=== PATIENT | male | born 1995 | race Caucasian/White ===

== ENCOUNTER 2016-08-09 19:39 | Emergency (ER) | payer MEDICAID ==
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
[2016-08-09 21:26] VITALS: BMI 26.4
== END 2016-08-09 22:35 | disposition home or self-care (01) ==
LOC: ED 19:39
DX: F13.20 Sedative, hypnotic or anxiolytic dependence, uncomplicated (principal)

== ENCOUNTER 2016-08-19 23:25 | Emergency (ER) | payer MEDICAID ==
[2016-08-19 23:25] VITALS: BMI 26.4
[2016-08-20 00:13] VITALS: BP 144/83; PULSE 96; RESP 19; TEMP 97.5; O2SAT 99
--- NOTE | 2016-08-20 02:46 | ED PDOC ---
Arrival/HPI - General Chief Complaint: Anxiety Time Seen by Provider: 08/20/16 01:29 Historian: Patient - History of Present Illness Narrative History of Present Illness (Text): 08/20/16 04:13 20-year-old male with a history of panic disorder presents today complaining that he had a panic attack about 45 minutes prior to arrival. Patient states he is still feeling very anxious and stressed. Patient states he ran out of his Xanax and doesn't have an appointment with the psychiatrist until the of this month. Patient states this was one of the worst panic attacks that he had ever in his life. He denies chest pain at present time. Patient states he was having pain in the chest he was feeling short of breath. Patient states he has a long psychiatric history and has been taking Xanax 2 mg. Past Medical History - Provider Review Nursing Documentation Reviewed: Yes - Travel History Have you recently traveled outside [place] w/in the past 3 mons?: Yes If Yes, travel location?: [place] - Infectious Disease Hx of Infectious Diseases: None - Tetanus Immunization Tetanus Immunization: Unknown - Past Medical History Past Medical History: No Previous - Cardiac Hx Cardiac Disorders: No - Pulmonary Hx Respiratory Disorders: Yes Hx Asthma: Yes Hx Sleep Apnea: Yes (wears cpap) Other/Comment: anxiety, OCD - Neurological Hx Neurological Disorder: No Other/Comment: epilepsy - HEENT Hx HEENT Disorder: No - Renal Hx Renal Disorder: No - Endocrine/Metabolic Hx Endocrine Disorders: No - Hematological/Oncological Hx Blood Disorders: No - Integumentary Hx Dermatological Disorder: No - Musculoskeletal/Rheumatological Hx Musculoskeletal Disorders: No - Gastrointestinal Hx Gastrointestinal Disorders: No - Genitourinary/Gynecological Hx Genitourinary Disorders: No - Psychiatric Hx Psychophysiologic Disorder: Yes Hx Anxiety: Yes Hx Depression: Yes Hx Substance Use: No - Past Surgical History Past Surgical History: No Previous - Surgical History Hx Tonsillectomy: Yes - Anesthesia Hx Anesthesia: Yes Hx Anesthesia Reactions: No Hx Malignant Hyperthermia: No - Suicidal Assessment Feels Threatened In Home Enviroment: No Family/Social History - Physician Review Nursing Documentation Reviewed: Yes Family/Social History: Unknown Family HX Smoking Status: Never Smoked Hx Alcohol Use: No Hx Substance Use: No Hx Substance Use Treatment: No Allergies/Home Meds Allergies/Adverse Reactions: Allergies No Known Allergies Allergy (Verified 07/08/16 02:15) Home Medications: Home Meds Medication Instructions Recorded Confirmed ALPRAZolam [Xanax] 4 mg PO BID 07/08/16 07/08/16 Review of Systems - Review of Systems Constitutional: absent: Fatigue, Fevers Respiratory: absent: SOB, Cough Cardiovascular: absent: Chest Pain, Palpitations Gastrointestinal: absent: Abdominal Pain, Constipation, Diarrhea, Nausea, Vomiting Genitourinary Male: absent: Dysuria, Frequency, Hematuria Musculoskeletal: absent: Arthralgias, Back Pain, Neck Pain Skin: absent: Rash, Pruritis Neurological: absent: Headache, Dizziness Psychiatric: Anxiety. absent: Depression, Suicidal Ideation Physical Exam Vital Signs Reviewed: Yes Vital Signs Temp Pulse Resp BP Pulse Ox 08/20/16 00:12 97.5 F L 96 H 19 144/83 99 Temperature: Afebrile Blood Pressure: Normal Pulse: Regular Respiratory Rate: Normal Appearance: Positive for: Well-Appearing, Non-Toxic, Comfortable Pain Distress: None Mental Status: Positive for: Alert and Oriented X 3 - Systems Exam Head: Present: Atraumatic Mouth: Present: Moist Mucous Membranes Neck: Present: Normal Range of Motion Respiratory/Chest: Present: Clear to Auscultation, Good Air Exchange. No: Respiratory Distress, Accessory Muscle Use Cardiovascular: Present: Regular Rate and Rhythm, Normal S1, S2. No: Murmurs Upper Extremity: Present: Normal ROM Lower Extremity: Present: Normal ROM Neurological: Present: GCS=15, Speech Normal Skin: Present: Warm, Dry, Normal Color. No: Rashes Psychiatric: Present: Alert, Oriented x 3, Anxious Medical Decision Making ED Course and Treatment: 08/20/16 20-year-old male with a history of of anxiety and panic disorder ran out of his Xanax complaining of a recent panic attack. Patient is refusing to see the psychiatric ux developer. He is refusing EKG blood work and further evaluation. Patient wants a prescription for refill of his Xanax. I had a long conversation with the patient going back and forth with the patient stressing the importance of following up with a psychiatrist. Patient states he needs his Xanax without his Xanax he is going to go into withdrawal. Patient was advised that he was not going to get a prescription for Xanax from the emergency room. He then wished to speak with a male doctor in an attempt to get prescriptions for Xanax from the male doctor. The patient was then advised neither the male doctor nor myself was going to give the patient a prescription for Xanax. He could see the psychiatric ux developer and try to expedite a follow-up appointment for him but he refused the blood work again. Patient finally agreed to taking a Xanax here and then wanted to leave the emergency room. He was advised to follow-up with the psychiatrist within the next 2 days. Patient states he has an appointment with his psychiatrist. He was advised to follow-up with a primary care physician to try and get a refill of his medications. Patient verbalizes understanding of discharge instructions and need for immediate followup. I had a long in-depth conversation with the patient about Xanax and its addictive properties. Patient states he has been taking them since he was young. I have reviewed the [place] prescription website. Patient is without suicidal or homicidal ideations The patient is comfortable in the emergency room with stable vital signs. Threatening that without Xanax he will go into withdrawal. all aspects of this case were discussed the attending of record. Impression: Anxiety, panic disorder Follow-up with a primary care physician within the next 2 days Follow-up the psychiatrist within the next 2 days Return if symptoms worsen or persist or if new concerning symptoms develop - Medication Orders Current Medication Orders: Discontinued Medications Alprazolam (Xanax) 2 mg PO STAT STA PRN Reason: Protocol Stop: 08/20/16 02:43 Last Admin: 08/20/16 02:53 Dose: 2 MG Behavioural Document 08/20/16 02:53 RD (Rec: 08/20/16 02:53 RD [id number]) Maintenance Maintenance Dose Yes Disposition/Present on Arrival - Present on Arrival Any Indicators Present on Arrival: No History of DVT/PE: No History of Uncontrolled Diabetes: No Urinary Catheter: No History of Decub. Ulcer: No History Surgical Site Infection Following: None - Disposition Have Diagnosis and Disposition been Completed?: Yes Diagnosis: Panic attack, Anxiety Disposition: HOME/ ROUTINE Disposition Time: Patient Plan: Discharge Condition: GOOD Additional Instructions: Follow up with your primary care physician follow up with the psychiatrist as soon as possible Return if symptoms worsen persist or if new concerning symptoms develop Referrals: Jenny Drake MD [Primary Care Provider] - Follow up with primary [facility] [Outside] - Follow up with primary
== END 2016-08-20 02:54 | disposition home or self-care (01) ==
LOC: ED 23:25
DX: F41.0 Panic disorder [episodic paroxysmal anxiety] (principal); F41.9 Anxiety disorder, unspecified

== ENCOUNTER 2016-08-22 23:48 | Emergency (ER) | payer MEDICAID ==
[2016-08-23 00:19] VITALS: BMI 25.7
[2016-08-23 00:23] VITALS: RESP 18; TEMP 98.2
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
[2016-08-23 02:10] VITALS: BP 120/83; PULSE 87; O2SAT 100
== END 2016-08-23 02:14 | disposition home or self-care (01) ==
LOC: ED 23:48
DX: F41.0 Panic disorder [episodic paroxysmal anxiety] (principal); F41.9 Anxiety disorder, unspecified; L70.0 Acne vulgaris

== ENCOUNTER 2016-08-30 00:17 | Emergency (ER) | payer MEDICAID ==
[2016-08-30 00:37] VITALS: BMI 26.4
[2016-08-30 00:40] VITALS: BP 139/94
--- NOTE | 2016-08-30 01:31 | ED PDOC ---
Arrival/HPI - General Chief Complaint: Abnormal Skin Integrity Time Seen by Provider: 08/30/16 00:24 Historian: Patient - History of Present Illness Narrative History of Present Illness (Text): 08/30/16 01:27 Tyree Stuart is a 20 year old male, with a history of anxiety, presents to the emergency department complaining of possible lump on the left neck. Patient states that he became anxious thinking it might be serious. Denies any fever, chills, headache, ear pain, throat discomfort, chest pain, nausea, vomiting, diarrhea, urinary symptoms or any other complaints at this time.Requesting Xanax for his anxiety. Time/Duration: 1-3 hours Symptom Onset: Gradual Symptom Course: Unchanged Severity Level: Mild Activities at Onset: Light Past Medical History - Provider Review Nursing Documentation Reviewed: Yes - Infectious Disease Hx of Infectious Diseases: None - Tetanus Immunization Tetanus Immunization: Unknown - Past Medical History Past Medical History: No Previous - Cardiac Hx Cardiac Disorders: No - Pulmonary Hx Respiratory Disorders: Yes Hx Asthma: Yes Hx Sleep Apnea: Yes (wears cpap) Other/Comment: anxiety, OCD - Neurological Hx Neurological Disorder: No Other/Comment: epilepsy - HEENT Hx HEENT Disorder: No - Renal Hx Renal Disorder: No - Endocrine/Metabolic Hx Endocrine Disorders: No - Hematological/Oncological Hx Blood Disorders: No - Integumentary Hx Dermatological Disorder: No - Musculoskeletal/Rheumatological Hx Musculoskeletal Disorders: No - Gastrointestinal Hx Gastrointestinal Disorders: No - Genitourinary/Gynecological Hx Genitourinary Disorders: No - Psychiatric Hx Psychophysiologic Disorder: Yes Hx Anxiety: Yes Hx Depression: Yes Hx Substance Use: No - Past Surgical History Past Surgical History: No Previous - Surgical History Hx Tonsillectomy: Yes - Anesthesia Hx Anesthesia: Yes Hx Anesthesia Reactions: No Hx Malignant Hyperthermia: No - Suicidal Assessment Feels Threatened In Home Enviroment: No Family/Social History - Physician Review Nursing Documentation Reviewed: Yes Family/Social History: No Known Family HX Smoking Status: Never Smoked Hx Alcohol Use: No Hx Substance Use: No Hx Substance Use Treatment: No Allergies/Home Meds Allergies/Adverse Reactions: Allergies No Known Allergies Allergy (Verified 07/08/16 02:15) Home Medications: Home Meds Medication Instructions Recorded Confirmed ALPRAZolam [Xanax] 4 mg PO BID 07/08/16 07/08/16 Review of Systems - Physician Review All systems were reviewed & negative as marked: Yes - Review of Systems Constitutional: Normal. absent: Fatigue, Fevers Respiratory: Normal. absent: SOB, Cough Cardiovascular: Normal. absent: Chest Pain Gastrointestinal: Normal. absent: Abdominal Pain, Diarrhea, Nausea, Vomiting Genitourinary Male: Normal Musculoskeletal: Other (possibe lump on left neck ) Neurological: Normal. absent: Headache, Dizziness Psychiatric: Normal Physical Exam Vital Signs Reviewed: Yes Vital Signs Temp Pulse Resp BP Pulse Ox 08/30/16 03:19 98.4 F 100 H 16 98 08/30/16 00:39 98.5 F 114 H 18 139/94 H 99 Temperature: Afebrile Blood Pressure: Hypertensive Pulse: Regular Respiratory Rate: Normal Appearance: Positive for: Well-Appearing, Non-Toxic, Comfortable Pain Distress: None Mental Status: Positive for: Alert and Oriented X 3 - Systems Exam Head: Present: Atraumatic, Normocephalic Pupils: Present: PERRL Extroacular Muscles: Present: EOMI Conjunctiva: Present: Normal Ears: Present: Normal, NORMAL TM, Normal Canal. No: Erythema, TM Bulging Pharnyx: Present: Normal. No: ERYTHEMA, EXUDATE Neck: Present: Normal Range of Motion. No: MIDLINE TENDERNESS, Paraspinal Tenderness, Lymphadenopathy Respiratory/Chest: Present: Clear to Auscultation, Good Air Exchange. No: Respiratory Distress, Accessory Muscle Use Cardiovascular: Present: Regular Rate and Rhythm, Normal S1, S2. No: Murmurs Abdomen: Present: Normal Bowel Sounds. No: Tenderness, Distention, Peritoneal Signs Upper Extremity: Present: Normal Inspection. No: Cyanosis, Edema Lower Extremity: Present: Normal Inspection. No: Edema Neurological: Present: GCS=15, CN II-XII Intact, Speech Normal Skin: Present: Warm, Dry, Normal Color. No: Rashes Psychiatric: Present: Alert, Oriented x 3, Normal Insight, Normal Concentration Medical Decision Making ED Course and Treatment: 08/30/16 01:33 Impression: A 20 year old male who presents to the emergency department for anxiety symptoms after noticing lump on left neck. Plan: -- Reassess and disposition Progress Notes: - Medication Orders Current Medication Orders: Discontinued Medications Alprazolam (Xanax) 1 mg PO ONCE ONE Stop: 08/30/16 02:10 Last Admin: 08/30/16 02:26 Dose: 1 MG Behavioural Document 08/30/16 02:26 [email or web address] (Rec: 08/30/16 02:26 [email or web address] [id number]) Maintenance Maintenance Dose Yes Nonmedicinal Nonmedicinal Interventions Redirect Behavior Behavior for Medication: Anxiety Pantoprazole Sodium (Protonix Ec Tab) 40 mg PO STAT STA Stop: 08/30/16 02:11 Last Admin: 08/30/16 02:26 Dose: 40 MG - Scribe Statement The provider has reviewed the documentation as recorded by the Randell Douglass Provider Attestation: All medical record entries made by the Randell were at my direction and personally dictated by me. I have reviewed the chart and agree that the record accurately reflects my personal performance of the history, physical exam, medical decision making, and the department course for this patient. I have also personally directed, reviewed, and agree with the discharge instructions and disposition. Disposition/Present on Arrival - Present on Arrival Any Indicators Present on Arrival: No History of DVT/PE: No History of Uncontrolled Diabetes: No Urinary Catheter: No History of Decub. Ulcer: No History Surgical Site Infection Following: None - Disposition Have Diagnosis and Disposition been Completed?: Yes Diagnosis: Anxiety Disposition: HOME/ ROUTINE Disposition Time: 02:43 Patient Plan: Discharge Patient Problems: Current Active Problems Problem Status Diagnosed Anxiety Acute Condition: GOOD Discharge Instructions (ExitCare): Anxiety (ED) Additional Instructions: Follow up with your doctor this week Forms: SCHOOL NOTE
[2016-08-30] MEDS ORDERED: Pantoprazole 40 mg EC Tab PO STA (02:10)
[2016-08-30 03:19] VITALS: PULSE 100; RESP 16; TEMP 98.4; O2SAT 98
== END 2016-08-30 03:20 | disposition home or self-care (01) ==
LOC: ED 00:17
DX: F41.9 Anxiety disorder, unspecified (principal)

== ENCOUNTER 2016-12-12 21:35 | Emergency (ER) | payer MEDICAID, OTHER ==
[2016-12-12 22:54] VITALS: BMI 25.7
[2016-12-12 22:56] VITALS: RESP 18; TEMP 98.3
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
[2016-12-13 01:10] VITALS: BP 110/78; PULSE 98; O2SAT 99
== END 2016-12-13 01:19 | disposition left against medical advice (07) ==
LOC: ED 21:35
DX: M25.562 Pain in left knee (principal); M25.561 Pain in right knee

== ENCOUNTER 2017-05-20 00:24 | Emergency (ER) | payer MEDICAID ==
[2017-05-20 00:28] VITALS: BMI 32.5
[2017-05-20 00:33] VITALS: BP 132/79
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
[2017-05-20 04:00] VITALS: PULSE 99; TEMP 97.9
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
[2017-05-20 05:13] VITALS: RESP 19; O2SAT 99
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
== END 2017-05-20 05:13 | disposition home or self-care (01) ==
LOC: ED 00:24
DX: M54.9 Dorsalgia, unspecified (principal); M25.511 Pain in right shoulder; V49.9XXA Car occupant (driver) (passenger) injured in unspecified traffic accident, initial encounter; Y92.410 Unspecified street and highway as the place of occurrence of the external cause
CPT/HCPCS: 71020; 73030; 74176; 96372; 99284; J1885